=== PATIENT | male | born 1990 | race Caucasian/White ===

== ENCOUNTER 2016-03-20 10:19 | Day surgery (SDC) | payer OTHER ==
[~2016-03-20] VITALS: Ht 172.7 cm; Wt 92.0 kg
[2016-03-20] VITALS (16 sets, daily range): BP systolic 125–165; BP diastolic 58–96; PULSE 58–94; RESP 13–47; Ht 172.7 cm; Wt 92.0 kg
[2016-03-20] MEDS ORDERED: BACITRACIN/POLYMYXIN 28.35 GM OINT TOP ONE (12:12)
[2016-03-20] MEDS ORDERED: POLYMYXIN/BACITRACIN 1L IRRIG ONE (12:12)
[2016-03-20] MEDS ORDERED: NEOMYC/POLYMYX/BACIT 30 GM OINT ONE (12:16)
[2016-03-20] MEDS ORDERED: MIDAZOLAM 1 MG/ML 2 ML INJ ONE ×2 (12:18→13:56)
--- NOTE | 2016-03-20 12:56 | HPN ---
Date/Time of Note Date/Time of Note DATE: 03/20/16 TIME: 12:55 Interval H&P Admission Note Pt. seen H&P reviewed: No system changes MAY ZUÑIGA MD Mar 20, 2016 12:56
[2016-03-20] MEDS ORDERED: FENTAnyl 50 MCG/ML VIAL IV PRN (13:00)
[2016-03-20] MEDS ORDERED: ONDANSETRON 4 MG INJ IV PRN (13:00)
[2016-03-20] MEDS ORDERED: DIPHENHYDRAMINE 50 MG INJ IV PRN (13:00)
[2016-03-20] MEDS ORDERED: MEPERIDINE 25 MG INJ IV PRN (13:00)
[2016-03-20] MEDS ORDERED: HYDROmorphONE (0.2 MG/ML) 10ML SYG IV PRN (13:00)
[2016-03-20] MEDS ORDERED: POLYMYXIN/BACITRACIN 1L IRRIG IRR ONE (13:25)
[2016-03-20] MEDS ORDERED: LIDOCAINE 2% (SDV) 5 ML INJ ONE (13:44)
[2016-03-20] MEDS ORDERED: GLYCOPYRROLATE 1 MG INJ ONE (13:44)
[2016-03-20] MEDS ORDERED: ROCURONIUM 50 MG INJ ONE (13:44)
[2016-03-20] MEDS ORDERED: ONDANSETRON 4 MG INJ ONE (13:44)
[2016-03-20] MEDS ORDERED: PROPOFOL 20 ML ONE (13:44)
[2016-03-20] MEDS ORDERED: NEOSTIGMINE 3 MG/3 ML SYRINGE ONE (13:44)
[2016-03-20] MEDS ORDERED: CEFAZOLIN 1 GM INJ ONE (13:44)
--- NOTE | 2016-03-20 13:53 | RADRPT ---
PROCEDURE: Intraoperative imaging of the right tibia and fibula with fluoroscopy. CLINICAL INDICATION: Right lower leg pain. Intraoperative. TECHNIQUE: Four images of the lower right tibia and fibula were obtained in the operating room wit h an image intensifier. No radiologist was in attendance. 0.1 minutes of fluoroscopy time was used . COMPARISON: No prior study is available for comparison. FINDINGS: Images demonstrate a plate and multiple screws transfixing the mid and distal right tibia. IMPRESSION: 1. Intraoperative imaging of the right tibia and fibula. RPTAT: QQ .Raul Craven MD, MD Date Time Electronically viewed and signed by .Raul Craven MD, on 03/20/2016 13:52 .R/
[2016-03-20] MEDS: HYDROmorphONE (0.2 MG/ML) 10ML SYG IV PRN ×2 (14:06→14:20)
--- NOTE | 2016-03-21 04:56 | OPR ---
DATE OF OPERATION: 03/20/2016 SURGEON: May Tiwari MD ANESTHESIA: General. PREOPERATIVE DIAGNOSIS: Retained painful hardware, right tibia, status post open tibia fracture wit h residual signs of infection. POSTOPERATIVE DIAGNOSIS: Retained painful hardware, right tibia, status post open tibia fracture wit h residual signs of infection. OPERATION PERFORMED: 1. Removal of retained hardware with plate on the medial tibia with 10 screws. 2. Interpretation of intraoperative x-ray. ESTIMATED BLOOD LOSS: 50 mL. COMPLICATIONS: None. PROCEDURE: The patient is status post right distal tibia intraarticular fracture status post open r eduction with ____plate fixation. The patient apparently had persisting pain after the surgery and has signs of infection with drainage that required hospitalization. At this time, x-ray showed that the fracture was satisfactorily healed and that patient would benefit from hardware removal. Paul thakur was taken to the operating room and general anesthetic was given. A gram of Kefzol was given for prophylaxis. Tourniquet was applied on the right thigh. Previous incision was utilized. The plate and the screws were removed satisfactorily. There appeared to be 1 screw that was fractured. Woun d was irrigated with antibiotic solution. Hemostasis ascertained using cautery. Skin was closed wi th #1 Vicryl suture and malinda. Compression bandage applied. Anesthetic reversed. The patient wa s taken to recovery in stable condition. Dictated By: MAY YORK/VARGAS Conf#: [id number] DID#: [id number]
== END 2016-03-20 15:40 | disposition home or self-care (01) ==
LOC: SDS 10:19
PROVIDERS: ATTEND Specialist
DX: S82.301A Unspecified fracture of lower end of right tibia, initial encounter for closed fracture (principal); T84.84XA Pain due to internal orthopedic prosthetic devices, implants and grafts, initial encounter; Y79.8 Miscellaneous orthopedic devices associated with adverse incidents, not elsewhere classified; Y92.89 Other specified places as the place of occurrence of the external cause
CPT/HCPCS: 20680; 73590; 88300; J0690; J1170; J1200; J2175; J2250; J2405; J2710; J3010; Z7512; Z7610